=== PATIENT | male | born 1975 | race Caucasian/White ===

== ENCOUNTER 2019-03-18 10:52 | Emergency (ER) | payer OTHER ==
[~2019-03-18] VITALS: Ht 182.9 cm; Wt 86.4 kg
--- NOTE | 2019-03-18 11:17 | NUR ---
xray at bedside.
[2019-03-18] MEDS ORDERED: TRAM50TA2 PO (11:54)
[2019-03-18 12:14] VITALS: BP 152/97
== END 2019-03-18 12:16 | disposition home or self-care (01) ==
LOC: ER 10:54
DX: S82.435A Nondisplaced oblique fracture of shaft of left fibula, initial encounter for closed fracture (principal); M19.90 Unspecified osteoarthritis, unspecified site; G89.29 Other chronic pain; X50.1XXA Overexertion from prolonged static or awkward postures, initial encounter; Y93.01 Activity, walking, marching and hiking; Y92.89 Other specified places as the place of occurrence of the external cause; Y99.9 Unspecified external cause status
CPT/HCPCS: 73610; 99284